=== PATIENT | female | born 1985 | race Asian ===

== ENCOUNTER 2021-06-27 13:37 | Emergency (ER) | payer OTHER ==
[2021-06-27 14:24] LABS: BILIRUBIN,URINE NEGATIVE (NEGATIVE); KETONES,URINE (UA) NEGATIVE (NEGATIVE)
[2021-06-27 14:25] LABS: CLARITY,URINE CLEAR (CLEAR)
[2021-06-27 14:26] LABS: HCG UR QUAL NEGATIVE
[2021-06-27 14:36] LABS: BACTERIA,URINE Few /HPF (None Seen); SQUAMOUS EPITHELIAL CELL,UR FEW Squamous (<= Few)
[2021-06-27] MEDS ORDERED: KETOROLAC 30 MG/ML VIAL IVP STA (15:15)
[2021-06-27] MEDS ORDERED: cefTRIAXone 1 GM VIAL IVP STA (15:15)
[2021-06-27] MEDS ORDERED: SODIUM CHLORIDE 0.9% 1,000 ML IV STA (15:15)
--- NOTE | 2021-06-27 15:18 | ED Physician Documentation ---
History of Present Illness - Stated complaint Stated Complaint: FEMALE - Chief complaint Chief Complaint: UTI - Additonal information Additional information: 36-year-old female presents emergency department for evaluation of dysuria urgency and frequency. Symptoms began 2 days ago. She endorses feeling fevers and chills. She states that prior to leaving [place] to visit her family here on the [place] she was treated for and a urinary tract infection. She was started on Macrobid. She finished the antibiotic early last week and was symptom-free until 3 days ago. She is sexually active with one partner. Denies vaginal bleeding or discharge. No vomiting. Review of Systems Constitutional: reports: Fever, Chills, Myalgias, Fatigue Eyes: reports: Reviewed and negative Nose: reports: Reviewed and negative Throat: reports: Reviewed and negative Cardiac: reports: Reviewed and negative Respiratory: reports: Reviewed and negative GI: denies: Abdominal Pain, Nausea, Vomiting : reports: Dysuria, Frequency, Hesitancy Skin: denies: Rash, Lesions Musculoskeletal: denies: Neck pain, Back pain, Extremity pain PD PAST MEDICAL HISTORY - Present Medications Home Medications: Ambulatory Orders Medication Instructions Recorded Confirmed Cefpodoxime Proxetil [Vantin] 100 mg PO Q12H #14 tablet 06/27/21 Dextroamphetamine/Amphetamine 30 mg ORAL BID 06/27/21 06/27/21 [Adderall 30 mg Tablet] Trazodone HCl 200 mg PO HS 06/27/21 06/27/21 - Allergies Allergies/Adverse Reactions: Allergies Allergy/AdvReac Type Severity Reaction Status Date / Time No Known Drug Allergies Allergy Verified 06/27/21 13:39 PD ED PE EXPANDED - General General: Alert, No acute distress, Other (Wrapped up in blankets in the bed. Appears to feel ill) - Cardiac Cardiac: Tachy, Radial strong equal, Pedal strong equal, Cap refill < 2 sec. No: Murmur Present - Respiratory Respiratory: Clear to ausultation anisa. No: Distress, Labored - Abdomen Abdomen: Normal Bowel sounds, Other (No flank or CVA tenderness elicited). No: Tender to palpation - Back Back: No: CVA TTP right, CVA TTP left - Derm Derm: Normal color, Warm and dry. No: Rash Results - Vitals Vitals: Vital Signs - 24 hr 06/27/21 06/27/21 13:41 14:45 Temperature 37.7 C 36.8 C Heart Rate 105 H 102 H Respiratory 18 14 Rate Blood Pressure 105/89 H 133/77 H O2 Saturation 98 100 Oxygen O2 Source Room air - Labs Labs: Laboratory Tests 06/27/21 06/27/21 06/27/21 13:50 15:22 15:22 WBC 9.7 RBC 4.02 L Hgb 11.7 L Hct 35.3 L MCV 87.8 MCH 29.1 MCHC 33.1 RDW 12.3 Plt Count 219 MPV 9.5 Neut # (Auto) 8.6 H Lymph # (Auto) 0.4 L [place] # (Auto) 0.6 Eos # (Auto) 0.0 Baso # (Auto) 0.0 Absolute Nucleated RBC 0.00 Nucleated RBC % 0.0 Sodium 134 L Potassium 3.9 Chloride 100 L Carbon Dioxide 24 Anion Gap 10.0 BUN 10 Creatinine 0.7 Estimated GFR (MDRD) 94 Glucose 161 H Calcium 8.6 Urine Color DK. ORANGE Urine Clarity CLEAR Urine pH 5.0 Ur Specific [place] <=1.005 Urine Protein Urine Glucose (UA) Urine Ketones NEGATIVE Urine Occult Blood Urine Nitrite Urine Bilirubin NEGATIVE Urine Urobilinogen Ur Leukocyte Esterase Urine RBC 6-10 H Urine WBC 11-25 H Ur Squamous Epith Cells FEW Squamous Urine Bacteria Few Ur Microscopic Review INDICATED Urine Culture Comments NOT INDICATED Urine HCG, Qual NEGATIVE PD MEDICAL DECISION MAKING - ED course Complexity details: reviewed results, re-evaluated patient, considered differential, d/w patient ED course: 36-year-old female presents to the emergency department for evaluation of fevers chills myalgias dysuria urgency and frequency. She was recently diagnosed with a urinary tract infection in [place] where she lives. She finished a course of Macrobid and initially felt better but over time the symptoms returned again. She had no fever here she did have some moderate tachycardia with a heart rate of 110. However there was very minimal abdominal tenderness no flank tenderness or CVA tenderness. We did do screening labs. No leukocytosis or worrisome electrolyte derangement. Patient is taking Pyridium at home therefore her urine was very difficult to interpret for infection. Patient declined CT imaging today. Her symptoms improved after receiving a liter of IV fluids as well as some ceftriaxone. Prescription for Cefpodoxime will be sent to the [facility] in [place]. Emergent return precautions were discussed for failure of symptoms to resolve. Departure - Departure Disposition: 01 Home, Self Care Clinical Impression: Cystitis Condition: Stable Record reviewed to determine appropriate education?: Yes Instructions: ED UTI Cystitis Female Prescriptions: Cefpodoxime Proxetil [Vantin] 100 mg PO Q12H #14 tablet Comments: Shakila flores were seen today in the emergency department for chills, body aches as well is pain and difficulty with urination. Your urine was difficult to interpret for infection as you are taking Pyridium. Your screening labs did not show any worrisome findings such as an elevated white blood cell count or problems with your Kidneys. We did give you IV fluids here in the emergency department as well as 1 g of ceftriaxone. I would like you to fill the prescription for the Cefpodoxime at the [facility] and take your first dose tonight. If your symptoms are failing to improve, you have fevers higher than 102, back pain, uncontrolled vomiting please return immediately to the ER for a second evaluation.
[2021-06-27 15:27] LABS: BASOPHILS % (AUTO) 0.2 %; EOSINOPHILS % (AUTO) 0.1 %; HCT - HEMATOCRIT 35.3 % (37.0-47.0); HGB - HEMOGLOBIN 11.7 g/dL (12.0-16.0); LYMPHOCYTES # (AUTO) 0.4 10^3/uL (1.5-3.5); LYMPHOCYTES % (AUTO) 4.5 %; MEAN CORPUSCULAR HEMOGLOBIN 29.1 pg (27.0-31.0); MEAN CORPUSCULAR HGB CONC 33.1 g/dL (32.0-36.0); MEAN CORPUSCULAR VOLUME 87.8 fL (81.0-99.0); MEAN PLATELET VOLUME 9.5 fL (7.9-10.8); MONOCYTES # (AUTO) 0.6 10^3/uL (0.0-1.0); NEUTROPHILS # (AUTO) 8.6 10^3/uL (1.5-6.6); NEUTROPHILS % (AUTO) 88.6 %; PLT - PLATELET COUNT 219 10^3/uL (130-450); RED BLOOD COUNT 4.02 10^6/uL (4.20-5.40); RED CELL DISTRIBUTION WIDTH 12.3 % (12.0-15.0); WHITE BLOOD COUNT 9.7 x10^3/uL (4.8-10.8)
[2021-06-27 15:35] LABS: CALCIUM 8.6 mg/dL (8.5-10.3); CREATININE 0.7 mg/dL (0.4-1.0); POTASSIUM 3.9 mmol/L (3.5-5.0)
[2021-06-27 16:35] VITALS: BP 112/68
== END 2021-06-27 16:37 | disposition home or self-care (01) ==
LOC: ED 13:37
DX: N30.90 Cystitis, unspecified without hematuria (principal)
CPT/HCPCS: 36415; 80048; 81001; 81003; 81025; 85025; 87086; 87181; 96374; 96375; 99284